=== PATIENT | male | born 2000 | race Caucasian/White ===

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

== ENCOUNTER → 2020-06-14 | Outpatient (CLI) | payer OTHER ==
[~2020-06-14] MED LIST: ISOVUE-370 76% 100ML VIAL As Ordered ONE
--- NOTE | 2020-06-14 14:52 | REPVR ---
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 Radiation optimization: All CT scans at this facility use at least one of these dose optimization techniques: automated exposure control; mA and/or kV adjustment per patient size (includes targeted exams where dose is matched to clinical indication); or iterative reconstruction. Contrast material: ISOVUE 370; Contrast volume: 75 ml; Contrast route: INTRAVENOUS (IV); COMPARISON: 1. CT Neck with contrast 10/05/2015 8:[address] Neck with contrast 04/12/2015 8:14:27 PM FINDINGS: Nasopharynx: Unremarkable. Oropharynx: Unremarkable. No significant tonsillar enlargement. Hypopharynx: Unremarkable. Larynx: Unremarkable. Normal epiglottis. Retropharyngeal space: Unremarkable. Submandibular/Parotid glands: Normal. Glands are normal in size. Thyroid: Normal. No enlarged or calcified nodules. Lymph nodes: No pathologically enlarged lymph nodes. Trachea: Visualized trachea is unremarkable. Lungs: Unremarkable as visualized. Bones/joints: Unremarkable. No acute fracture. Soft tissues: Loculated, predominantly centrally hypodense, peripherally enhancing lesion in the right pre-auricular soft tissues measuring 1.2 x 1.0 x 1.0 cm, image 39 series 202, image 19 series 201. Interval conspicuity since the CT neck soft tissue study of September 2015, an inflamed lesion was present at this location in March of 2015. IMPRESSION: Recurrent right pre-auricular soft tissue lesion may represent an infected/inflamed pre-auricular pit. Electronically signed by: Nazia Gaspar On 06/14/2020 14:52:47 PM
== END ==
LOC: M RAD 14:00
PROVIDERS: ATTEND Otolaryngology
DX: Q18.1 Preauricular sinus and cyst (principal)
CPT/HCPCS: 70491; Q9967

== ENCOUNTER → 2023-07-12 | Outpatient (CLI) | payer OTHER | LOC: M RAD 08:16 | PROVIDERS: ATTEND Otolaryngology | DX: Q18.1 Preauricular sinus and cyst (principal); R59.0 Localized enlarged lymph nodes | CPT/HCPCS: 70491; Q9967 ==